=== PATIENT | male | born 1970 | race Caucasian/White ===

== ENCOUNTER 2017-02-13 21:00 | Inpatient (IN) | payer OTHER, MEDICARE ==
[~2017-02-13] VITALS: Ht 177.8 cm; Wt 132.0 kg
[2017-02-13 22:06] LABS: BASO % 0.3 % (0.2-1.2); EOS # 0.1 10_X3_uL (0.0-0.5); EOS % 0.5 % (0.8-7.0); GRAN # 8.4 10_X3_uL (1.8-5.4); GRAN % 84.9 % (34.0-67.9); HEMATOCRIT 44.2 % (40-51); HEMOGLOBIN 15.2 g/dL (13.7-17.5); LYMPH # 0.7 10_X3_uL (1.3-3.6); LYMPH % 7.3 % (21.8-53.1); MEAN CORPUSCULAR HEMOGLOBIN 30.3 pg (27.0-33.0); MEAN CORPUSCULAR HGB CONC 34.4 g/dL (32.0-36.0); MEAN CORPUSCULAR VOLUME 88.2 fL (79-92); MEAN PLATELET VOLUME 9.5 fl (7.5-11.5); MONO # 0.7 10_X3_uL (0.3-0.8); PLATELET COUNT 176 x10_3/uL (163-337); RED BLOOD COUNT 5.01 x10_6/uL (4.6-6.1); RED CELL DISTRIBUTION WIDTH 14.7 % (11.6-14.4)
[2017-02-13 22:40] LABS: ALBUMIN 4.1 gm/dL (3.4-5.0); ALKALINE PHOSPHATASE 81 U/L (50-136); ALT/SGPT 102 U/L (7.53-40.17); AST/SGOT 195 U/L (6.66-35.34); BILIRUBIN,TOTAL 0.44 mg/dL (0.0-1.0); CALCIUM 9.3 mg/dL (8.7-10.7); CARBON DIOXIDE 17 mmol/L (21-32); GLUCOSE,RANDOM 106 mg/dL (70-99); POTASSIUM 3.9 mmol/L (3.5-5.1); SODIUM 126 mmol/L (136-145); TOTAL PROTEIN 7.9 gm/dL (6.4-8.2)
[2017-02-13 22:53] LABS: BLOOD UREA NITROGEN 6 mg/dL (7-18)
[2017-02-13 22:54] LABS: CREATINE KINASE 384 U/L (35-232)
[2017-02-14 03:11] LABS: URINE BILIRUBIN NEGATIVE (NEGATIVE); URINE BLOOD TRACE (NEGATIVE); URINE GLUCOSE (UA) NORMAL (NORMAL); URINE KETONE NEGATIVE (NEGATIVE); URINE LEUKOCYTE ESTERASE NEGATIVE (NEGATIVE); URINE NITRATE NEGATIVE (NEGATIVE); URINE PROTEIN NEGATIVE (NEGATIVE); UROBILINOGEN NORMAL mg/dL (<1.0)
[2017-02-14 03:32] LABS: URINE RBC 0-5 /[HPF] (0-2)
[2017-02-14 07:41] LABS: HEMATOCRIT 39.6 % (40-51); HEMOGLOBIN 13.3 g/dL (13.7-17.5); MEAN CORPUSCULAR HEMOGLOBIN 30.2 pg (27.0-33.0); MEAN CORPUSCULAR HGB CONC 33.6 g/dL (32.0-36.0); MEAN PLATELET VOLUME 9.8 fl (7.5-11.5); RED BLOOD COUNT 4.4 x10_6/uL (4.6-6.1); RED CELL DISTRIBUTION WIDTH 14.8 % (11.6-14.4); WHITE BLOOD COUNT 14.4 x10_3/uL (4.2-9.1)
[2017-02-14 09:45] LABS: ALBUMIN 3.7 gm/dL (3.4-5.0); ALKALINE PHOSPHATASE 51 U/L (50-136); ALT/SGPT 90 U/L (7.53-40.17); AMYLASE 40 U/L (15.62-74.58); AST/SGOT 144 U/L (6.66-35.34); BILIRUBIN,TOTAL 0.47 mg/dL (0.0-1.0); BLOOD UREA NITROGEN 8 mg/dL (7-18); CALCIUM 8.2 mg/dL (8.7-10.7); CARBON DIOXIDE 24 mmol/L (21-32); CREATININE 1.2 mg/dL (0.6-1.3); GLUCOSE,RANDOM 104 mg/dL (70-99); LIPASE 34 U/L (6.75-60.75); POTASSIUM 4.5 mmol/L (3.5-5.1); SODIUM 133 mmol/L (136-145); TOTAL PROTEIN 6.1 gm/dL (6.4-8.2)
[2017-02-15 06:37] LABS: GRAN % 94.9 % (34.0-67.9); HEMOGLOBIN 13.2 g/dL (13.7-17.5); LYMPH # 0.3 10_X3_uL (1.3-3.6); LYMPH % 2.9 % (21.8-53.1); MEAN CORPUSCULAR HEMOGLOBIN 29.9 pg (27.0-33.0); MEAN CORPUSCULAR VOLUME 90.7 fL (79-92); MEAN PLATELET VOLUME 9.9 fl (7.5-11.5); MONO # 0.3 10_X3_uL (0.3-0.8); MONO % 2.2 % (5.3-12.2); PLATELET COUNT 153 x10_3/uL (163-337); RED BLOOD COUNT 4.41 x10_6/uL (4.6-6.1); RED CELL DISTRIBUTION WIDTH 14.8 % (11.6-14.4); WHITE BLOOD COUNT 11.6 x10_3/uL (4.2-9.1)
[2017-02-15 07:00] LABS: ALBUMIN 3.4 gm/dL (3.4-5.0); ALKALINE PHOSPHATASE 56 U/L (50-136); ALT/SGPT 66 U/L (7.53-40.17); AST/SGOT 78 U/L (6.66-35.34); BILIRUBIN,TOTAL 0.31 mg/dL (0.0-1.0); BLOOD UREA NITROGEN 9 mg/dL (7-18); CALCIUM 8.6 mg/dL (8.7-10.7); CARBON DIOXIDE 23 mmol/L (21-32); GLUCOSE,RANDOM 165 mg/dL (70-99); POTASSIUM 4.1 mmol/L (3.5-5.1); SODIUM 134 mmol/L (136-145); TOTAL PROTEIN 6.8 gm/dL (6.4-8.2)
[2017-02-16 08:04] LABS: BASO % 0.1 % (0.2-1.2); GRAN # 11.3 10_X3_uL (1.8-5.4); GRAN % 91.6 % (34.0-67.9); HEMATOCRIT 39.7 % (40-51); HEMOGLOBIN 13.3 g/dL (13.7-17.5); LYMPH # 0.5 10_X3_uL (1.3-3.6); LYMPH % 3.7 % (21.8-53.1); MEAN CORPUSCULAR HEMOGLOBIN 30.4 pg (27.0-33.0); MEAN CORPUSCULAR HGB CONC 33.5 g/dL (32.0-36.0); MEAN CORPUSCULAR VOLUME 90.8 fL (79-92); MONO # 0.6 10_X3_uL (0.3-0.8); MONO % 4.6 % (5.3-12.2); PLATELET COUNT 186 x10_3/uL (163-337); RED BLOOD COUNT 4.37 x10_6/uL (4.6-6.1); RED CELL DISTRIBUTION WIDTH 14.8 % (11.6-14.4); WHITE BLOOD COUNT 12.3 x10_3/uL (4.2-9.1)
[2017-02-16 08:30] LABS: ALBUMIN 3.4 gm/dL (3.4-5.0); ALKALINE PHOSPHATASE 64 U/L (50-136); ALT/SGPT 52 U/L (7.53-40.17); AST/SGOT 55 U/L (6.66-35.34); BILIRUBIN,TOTAL 0.26 mg/dL (0.0-1.0); BLOOD UREA NITROGEN 14 mg/dL (7-18); CALCIUM 8.9 mg/dL (8.7-10.7); CARBON DIOXIDE 24 mmol/L (21-32); GLUCOSE,RANDOM 129 mg/dL (70-99); POTASSIUM 4.1 mmol/L (3.5-5.1); SODIUM 133 mmol/L (136-145); TOTAL PROTEIN 6.8 gm/dL (6.4-8.2)
[2017-02-16 10:32] LABS: HBS AG SCREEN Non Reactive (NR); HCV Non Reactive (NR)
[2017-02-17 06:32] LABS: HEMOGLOBIN 13.7 g/dL (13.7-17.5); MEAN CORPUSCULAR HGB CONC 33.4 g/dL (32.0-36.0); MEAN CORPUSCULAR VOLUME 89.7 fL (79-92); MEAN PLATELET VOLUME 9.8 fl (7.5-11.5); RED BLOOD COUNT 4.57 x10_6/uL (4.6-6.1); RED CELL DISTRIBUTION WIDTH 14.5 % (11.6-14.4); WHITE BLOOD COUNT 11.5 x10_3/uL (4.2-9.1)
[2017-02-17 06:45] LABS: CARBON DIOXIDE 24 mmol/L (21-32); CREATININE 1.1 mg/dL (0.6-1.3); GLUCOSE,RANDOM 114 mg/dL (70-99); POTASSIUM 4.2 mmol/L (3.5-5.1); SODIUM 133 mmol/L (136-145)
[2017-02-17 06:47] LABS: BLOOD UREA NITROGEN 19 mg/dL (7-18)
[2017-02-18 05:58] LABS: HEMATOCRIT 42.6 % (40-51); HEMOGLOBIN 14.4 g/dL (13.7-17.5); MEAN CORPUSCULAR HEMOGLOBIN 30.1 pg (27.0-33.0); MEAN CORPUSCULAR HGB CONC 33.8 g/dL (32.0-36.0); MEAN CORPUSCULAR VOLUME 88.9 fL (79-92); MEAN PLATELET VOLUME 9.6 fl (7.5-11.5); RED BLOOD COUNT 4.79 x10_6/uL (4.6-6.1); RED CELL DISTRIBUTION WIDTH 14.4 % (11.6-14.4); WHITE BLOOD COUNT 8.9 x10_3/uL (4.2-9.1)
[2017-02-18 06:11] LABS: CALCIUM 8.7 mg/dL (8.7-10.7); CARBON DIOXIDE 25 mmol/L (21-32); CREATININE 1.1 mg/dL (0.6-1.3); GLUCOSE,RANDOM 111 mg/dL (70-99); POTASSIUM 3.9 mmol/L (3.5-5.1); SODIUM 133 mmol/L (136-145)
[2017-02-18 06:16] LABS: BLOOD UREA NITROGEN 24 mg/dL (7-18)
== END 2017-02-18 09:30 | disposition home or self-care (01) | DRG 871 ==
LOC: ER 21:00 → MS 23:37
PROVIDERS: Internal Medicine; ADMIT Family Medicine
DX: A41.89 Other specified sepsis (principal); J15.8 Pneumonia due to other specified bacteria; I10 Essential (primary) hypertension; Z90.49 Acquired absence of other specified parts of digestive tract; Z83.3 Family history of diabetes mellitus; Z80.9 Family history of malignant neoplasm, unspecified; Z82.49 Family history of ischemic heart disease and other diseases of the circulatory system; D72.829 Elevated white blood cell count, unspecified; R13.10 Dysphagia, unspecified; R59.1 Generalized enlarged lymph nodes; B96.89 Other specified bacterial agents as the cause of diseases classified elsewhere; Z79.899 Other long term (current) drug therapy
CPT/HCPCS: 36415; 70490; 71010; 71020; 74175; 80048; 80053; 80074; 81001; 82150; 82550; 82553; 83605; 83690; 85025; 86308; 86738; 87040; 87070; 87186; 87205; 87400; 87449; 93005; 94640; 94664; 94667; 94668; 96361; 96374; 96375; 99070; 99284-25; C1751; J2920; J2930; J7050